=== PATIENT | female | born 1975 | race Caucasian/White ===

== ENCOUNTER 2017-12-27 09:47 | Emergency (ER) | payer MEDICAID ==
[~2017-12-27] VITALS: Ht 160 cm; Wt 73.9 kg
[2017-12-27 11:45] VITALS: BP 116/69
== END 2017-12-27 11:45 | disposition home or self-care (01) ==
LOC: ED 09:47
DX: M25.572 Pain in left ankle and joints of left foot (principal); M25.562 Pain in left knee; M25.561 Pain in right knee; M25.512 Pain in left shoulder; M25.511 Pain in right shoulder
CPT/HCPCS: J1885; J3010; Q0162

== ENCOUNTER 2019-01-30 11:41 | Emergency (ER) | payer MEDICAID ==
[~2019-01-30] VITALS: Ht 157.5 cm; Wt 74.8 kg
[2019-01-30 12:02] VITALS: Ht 157.5 cm; Wt 74.8 kg
[2019-01-30 14:17] VITALS: BP 97/52
== END 2019-01-30 14:17 | disposition home or self-care (01) ==
LOC: ED 11:41
DX: M25.542 Pain in joints of left hand (principal); M25.541 Pain in joints of right hand; M25.562 Pain in left knee; M25.561 Pain in right knee; M25.572 Pain in left ankle and joints of left foot; M25.571 Pain in right ankle and joints of right foot; Z86.2 Personal history of diseases of the blood and blood-forming organs and certain disorders involving the immune mechanism
CPT/HCPCS: J1885; J2270

== ENCOUNTER 2019-03-02 13:31 | Emergency (ER) | payer MEDICAID ==
[~2019-03-02] VITALS: Ht 152.4 cm; Wt 75.8 kg
[2019-03-02 13:52] VITALS: Ht 152.4 cm; Wt 75.8 kg
[2019-03-02 14:46] LABS: BASOPHIL % 0.3 % (0-2); PLATELET COUNT 307 x10^3mcL (130-400)
[2019-03-02 14:47] LABS: CALCIUM 8.3 mg/dL (8.5-10.1); CARBON DIOXIDE 29.5 mmol/L (21-32); CHLORIDE SERUM 106 mmol/L (98-107); CREATININE SERUM 0.5 mg/dL (0.6-1.0); GFR1 > 60 mL/min; GLUCOSE SERUM 83 mg/dL (74-106); POTASSIUM SERUM 3.6 mmol/L (3.5-5.1); SODIUM SERUM 142 mmol/L (136-145)
[2019-03-02 14:49] LABS: RED CELL DISTRIBUTION WIDTH 17.7 % (11.5-14.5)
[2019-03-02 14:58] LABS: ALKALINE PHOSPHATASE 63 U/L (46-116); ALT/SGPT 19 U/L (14-59); AST/SGOT 14 U/L (15-37); BILIRUBIN TOTAL 0.1 mg/dL (0.20-1.00); C REACTIVE PROTEIN 3.2 mg/dL (<=0.9); TOTAL PROTEIN, SERUM 6.6 g/dL (6.4-8.2); URIC ACID 3.2 mg/dL (2.6-6.0)
[2019-03-02 15:01] LABS: T3 TOTAL 1.07 ng/mL
[2019-03-02 15:02] LABS: ALBUMIN 2.9 g/dL (3.4-5.0)
[2019-03-02 15:03] LABS: FREE T4 1.42 ng/dL (0.76-1.46); FREE THYROXINE INDEX 4.1 ug/dL (1.4-4.5)
[2019-03-02 15:31] LABS: ERYTHROCYTE SED RATE 57 mm/hr (0-20)
[2019-03-02 16:55] VITALS: BP 136/63
== END 2019-03-02 16:55 | disposition home or self-care (01) ==
LOC: ED 13:31
PROVIDERS: Emergency Medicine
DX: M79.10 Myalgia, unspecified site (principal); M79.89 Other specified soft tissue disorders
CPT/HCPCS: 84439; J1885; J7512

== ENCOUNTER 2019-08-28 16:47 | Inpatient (IN) | payer MEDICAID ==
[~2019-08-28] VITALS: Ht 152.4 cm; Wt 77.2 kg
[2019-08-28 17:20] LABS: BASOPHIL % 0.3 % (0-2); PLATELET COUNT 408 x10^3mcL (130-400); RED CELL DISTRIBUTION WIDTH 19.2 % (11.5-14.5)
[2019-08-28 17:30] LABS: CALCIUM 8.2 mg/dL (8.5-10.1); CARBON DIOXIDE 27.8 mmol/L (21-32); CHLORIDE SERUM 103 mmol/L (98-107); CREATININE SERUM 0.8 mg/dL (0.6-1.0); GFR1 > 60 mL/min; GLUCOSE SERUM 103 mg/dL (74-106); SODIUM SERUM 138 mmol/L (136-145)
[2019-08-28 17:34] LABS: ALKALINE PHOSPHATASE 91 U/L (46-116); ALT/SGPT 27 U/L (14-59); AST/SGOT 12 U/L (15-37); BILIRUBIN TOTAL 0.1 mg/dL (0.20-1.00); LIPASE 115 IU/L (73-393); TOTAL PROTEIN, SERUM 7.5 g/dL (6.4-8.2)
[2019-08-28 17:35] LABS: ALBUMIN 2.7 g/dL (3.4-5.0)
[2019-08-28 18:24] LABS: CHOLESTEROL 237 mg/dL (<200); HDL CHOLESTEROL 63 mg/dL (40-60)
[2019-08-28 19:22] LABS: microscopic required? YES; urine erythrocyte 3+ (NEGATIVE)
[2019-08-28 20:39] LABS: AMPHETAMINE QUAL UR NONE DETECTED (See below)
[2019-08-28] MEDS ORDERED: TIROSINT13 MCG PO (20:48)
[2019-08-28] MEDS ORDERED: NASAL MIST126 ML (20:48)
[2019-08-28 21:11] VITALS: BP 138/69
[2019-08-28 21:16] VITALS: Ht 152.4 cm; Wt 77.2 kg
[2019-08-28 21:19] LABS: T3 TOTAL 0.55 ng/mL
[2019-08-28] MEDS ORDERED: LEVO-T112 MCG (21:19)
[2019-08-28 21:29] LABS: FREE T4 1.28 ng/dL (0.76-1.46); FREE THYROXINE INDEX 3.2 ug/dL (1.4-4.5); T4(THYROXINE) 9.6 ug/dL (4.7-13.3)
[2019-08-28 22:05] LABS: CHOLESTEROL/HDL RATIO 3.6
[2019-08-29 05:22] LABS: BASOPHIL % 0.4 % (0-2); PLATELET COUNT 350 x10^3mcL (130-400)
[2019-08-29 05:23] LABS: RED CELL DISTRIBUTION WIDTH 19.5 % (11.5-14.5)
[2019-08-29 05:57] VITALS: BP 145/84
[2019-08-29 06:48] LABS: CALCIUM 8.3 mg/dL (8.5-10.1); CARBON DIOXIDE 28.9 mmol/L (21-32); CHLORIDE SERUM 105 mmol/L (98-107); CREATININE SERUM 0.6 mg/dL (0.6-1.0); GFR1 > 60 mL/min; GLUCOSE SERUM 85 mg/dL (74-106); MAGNESIUM 1.9 mg/dL (1.8-2.4); PHOSPHOROUS 4.5 mg/dL (2.5-4.9); POTASSIUM SERUM 3.9 mmol/L (3.5-5.1); SODIUM SERUM 140 mmol/L (136-145)
[2019-08-29 08:51] VITALS: BP 137/71
[2019-08-29 13:06] VITALS: BP 108/66
[2019-08-29 16:25] VITALS: BP 111/57
== END 2019-08-29 19:38 | disposition home or self-care (01) | DRG 203 ==
LOC: ED 16:47 → DU 19:52 → MU 08-29 16:31
PROVIDERS: Emergency Medicine; ADMIT Student in an Organized Health Care Education/Training Program
DX: M94.0 Chondrocostal junction syndrome [Tietze] (principal); E44.0 Moderate protein-calorie malnutrition; N39.0 Urinary tract infection, site not specified; E03.9 Hypothyroidism, unspecified; D50.9 Iron deficiency anemia, unspecified; E66.9 Obesity, unspecified; E78.5 Hyperlipidemia, unspecified; M19.90 Unspecified osteoarthritis, unspecified site; Z68.34 Body mass index [BMI] 34.0-34.9, adult
CPT/HCPCS: 83880; 84439; 85378; G0378; G0480; Q0092; Q9967